=== PATIENT | male | born 1970 | race Caucasian/White ===

== ENCOUNTER 2020-09-25 00:35 | Emergency (ER) | payer SELFPAY ==
[~2020-09-25] VITALS: Ht 172.7 cm; Wt 82.6 kg
--- NOTE | 2020-09-25 00:44 | NUR ---
Patient to ER bed 8 to gown for evaluation. Side rails up.
[2020-09-25 00:46] VITALS: BP_SYST 164
--- NOTE | 2020-09-25 01:01 | NUR ---
ER at bedside examining patient.
--- NOTE | 2020-09-25 01:05 | NUR ---
Patient brought in ambulatory complaining of V-shaped laceration to bridge of nose occuring 1 hour prior to arrival. Patient reports that he was at work when boxes fell on home. Patient denies KO. Pain 12/05. No other complaints/injuries per patient or as noted. Will continue to monitor.
[2020-09-25] MEDS ORDERED: LIDOCAINE 1% 10 MG/ML, 20 ML MDV INJ ONE (01:15)
--- NOTE | 2020-09-25 02:31 | NUR ---
Patient has a 1.5 cm upside down U shapped laceration to the bridge of nose. Dr. Gonzalez applied 5 sutures using sterile technique. Edges well approximated. Site cleansed with Chlorhexadine. No bleeding noted. Pt tolerated well.
[2020-09-25] MEDS ORDERED: IBUPROFEN 800 MG TABLET ONE (02:51)
[2020-09-25 02:55] VITALS: BP_SYST 169
--- NOTE | 2020-09-25 02:55 | NUR ---
Patient given written and verbal discharge instructions and verbalizes understanding. ER MD discussed with patient the results and treatment provided. Patient in stable condition. ID arm band removed. Patient educated on pain management and to follow up with PMD. Opportunity for questions provided and answered. Medication side effect fact sheet provided.
[2020-09-25] MEDS ORDERED: IBUPROFEN 800 MG TABLET PO ONE (03:00)
== END 2020-09-25 02:55 | disposition home or self-care (01) ==
LOC: SED 00:35
DX: S02.2XXA Fracture of nasal bones, initial encounter for closed fracture (principal); S01.81XA Laceration without foreign body of other part of head, initial encounter; W18.39XA Other fall on same level, initial encounter; Y93.89 Activity, other specified; Y92.89 Other specified places as the place of occurrence of the external cause; Y99.8 Other external cause status
CPT/HCPCS: 70160-TC; 99283

== ENCOUNTER 2020-09-27 13:42 | Emergency (ER) | payer OTHER ==
[~2020-09-27] VITALS: Ht 170.2 cm; Wt 78.9 kg
--- NOTE | 2020-09-27 13:45 | NUR ---
Patient to ER bed 05 to gown for evaluation. Side rails up.
--- NOTE | 2020-09-27 13:47 | NUR ---
pt brought by self, A&Ox4 pt presents to ER for wound check after sutures placed 2 days ago, pt afebrile, no s/s infection, will cont to monitor.
[2020-09-27 13:52] VITALS: BP_SYST 171
--- NOTE | 2020-09-27 14:10 | NUR ---
Dr Craven evaluating patient at bedside
[2020-09-27 14:31] VITALS: BP_SYST 165
--- NOTE | 2020-09-27 14:32 | NUR ---
Patient given written and verbal discharge instructions and verbalizes understanding. ER MD discussed with patient the results and treatment provided. Patient in stable condition. ID arm band removed. No Rx given. Patient educated on pain management and to follow up with PMD. Pain Scale 2/10 . Opportunity for questions provided and answered. Medication side effect fact sheet provided.
== END 2020-09-27 14:32 | disposition home or self-care (01) ==
LOC: SED 13:42
DX: S01.21XD Laceration without foreign body of nose, subsequent encounter (principal); W20.8XXD Other cause of strike by thrown, projected or falling object, subsequent encounter
CPT/HCPCS: 99281

== ENCOUNTER 2020-10-03 12:44 | Emergency (ER) | payer OTHER ==
[~2020-10-03] VITALS: Ht 172.7 cm; Wt 83.9 kg
[2020-10-03 12:57] VITALS: BP_SYST 146
[2020-10-03 14:35] VITALS: BP_SYST 136
== END 2020-10-03 14:35 | disposition home or self-care (01) ==
LOC: SED 12:44
DX: S01.21XD Laceration without foreign body of nose, subsequent encounter (principal); Z48.02 Encounter for removal of sutures; X58.XXXD Exposure to other specified factors, subsequent encounter
CPT/HCPCS: 99281

== ENCOUNTER 2020-10-31 13:27 | Emergency (ER) | payer OTHER ==
[~2020-10-31] VITALS: Ht 170.2 cm; Wt 91.6 kg
[2020-10-31 13:30] VITALS: BP_SYST 161
[2020-10-31 14:21] LABS: MEAN CORPUSCULAR VOLUME 83 fL (79.0-98.0); MONOCYTES # (AUTO) 0.7 K/uL (0.0-1.0)
[2020-10-31 14:25] LABS: BASOPHILS # (AUTO) 0.1 K/uL (0.0-0.2); BASOPHILS % (AUTO) 0.9 % (0.0-2.0); EOSINOPHILS # (AUTO) 0.2 K/uL (0.0-0.4); EOSINOPHILS % (AUTO) 3.4 % (0.0-4.0); HEMATOCRIT 43.7 % (36-54); HEMOGLOBIN 15.1 g/dL (14.0-18.0); LYMPHOCYTES # (AUTO) 2.7 K/uL (1.0-5.5); LYMPHOCYTES % (AUTO) 36.9 % (20.5-51.5); MEAN CORPUSCULAR HEMOGLOBIN 29 pg (27-31); MEAN CORPUSCULAR HGB CONC 35 % (32-36); MONOCYTES % (AUTO) 10.1 % (1.7-9.3); NEUTROPHILS # (AUTO) 3.5 K/uL (1.8-7.7); NEUTROPHILS % (AUTO) 48.7 % (40.0-70.0); PLATELET COUNT (AUTO) 241 K/uL (130-430); RED BLOOD CELL COUNT(AUTO) 5.26 MIL/uL (4.2-6.2); RED CELL DISTRIBUTION WIDTH 13.5 % (9.0-15.0); WHITE BLOOD COUNT (AUTO) 7.2 K/uL (4.8-10.8)
[2020-10-31 14:36] LABS: PROTHROMBIN TIME 9.9 SECS (9.5-12.5)
[2020-10-31 14:42] LABS: C-REACTIVE PROTEIN QUANT < 0.2 mg/dL (0-0.5)
[2020-10-31 14:45] LABS: ANION GAP 8 (5-15); CALCIUM 8.1 mg/dL (8.4-11.0); CHLORIDE 106 mmol/L (98-107); CREATININE 0.95 mg/dL (0.55-1.30); GLUCOSE 123 mg/dL (70-99); POTASSIUM 3.7 mmol/L (3.5-5.1); SODIUM SERUM 140 mmol/L (136-145); UREA NITROGEN, BLOOD 14 mg/dL (8-21)
[2020-10-31 14:46] LABS: GFR AFRICAN AMERICAN 108 mL/min (>90)
[2020-10-31 14:51] LABS: ALANINE AMINOTRANSFERASE 36 U/L (12-78); ALBUMIN 3.7 g/dL (3.4-4.8); ASPARTATE AMINOTRANSFERASE 19 U/L (10-37); TOTAL BILIRUBIN 0.3 mg/dL (0.0-1.0)
[2020-10-31] MEDS ORDERED: CLIN150C15 PO (15:25)
[2020-10-31 16:02] VITALS: BP_SYST 155
== END 2020-10-31 16:02 | disposition home or self-care (01) ==
LOC: SED 13:27
DX: J34.0 Abscess, furuncle and carbuncle of nose (principal)
CPT/HCPCS: 36415; 80053; 83605; 85025; 85610-TC; 85730-TC; 86140; 99283